=== PATIENT | male | born 1995 | race African-American/Black ===

== ENCOUNTER 2022-03-07 14:51 | Emergency (ER) | payer SELFPAY ==
--- NOTE | ~2022-03-07 | CT_ITS ---
EXAMINATION: CT abdomen pelvis w con DATE: 03/07/2022 20:01 INDICATION: llq tenderness, n/v/d TECHNIQUE: Computed tomography (CT) of the abdomen and pelvis was performed with 100 mL Omnipaque-350 intravenous contrast. Automated exposure control and iterative reconstruction technique were employe d. The dose-length product was 355.60 mGy-cm. COMPARISON: None. FINDINGS: Lower thorax: Unremarkable Liver: Normal. Biliary/Gallbladder: Gallbladder is collapsed. No bile duct dilation. Pancreas: No mass or duct dilation. Spleen: Normal. Adrenals:No mass. Kidneys: No mass, stone, or hydronephrosis. GI tract: Distal esophageal and gastric wall edema as can be seen with esophagitis/gastritis. No smal l or large bowel dilation. Appendix not confidently visualized Mesentery/Peritoneum: No ascites, mass, or free air. Retroperitoneum: No mass. Pelvis: Pelvic organs are within normal limits. Soft Tissues: Soft tissues and body wall unremarkable. Bones: No acute osseous finding. IMPRESSION: No acute abdominopelvic process detected Reviewed, dictated and finalized at location K. [employer]
[2022-03-07 15:32] VITALS: BP 121/44; PULSE 51; RESP 16; TEMP 37; O2SAT 100
[2022-03-07 16:03] LABS: Basophils Percent Auto 0.9 % (0.2-1.2); Eosinophils Absolute Auto 0.1 K/mm3 (0-0.3); Eosinophils Percent Auto 2.2 % (0-4.4); Hemoglobin 13.9 g/dL (14.0-18.0); Immature Granulocyte Absolute 0.03 K/mm3 (0.00-0.031); Immature Granulocyte Percent A 0.6 % (0-0.5); Lymphocytes Absolute Auto 1.78 K/mm3 (0.9-3.2); Lymphocytes Percent Auto 38.5 % (18.3-44.2); Mean Corpuscular HGB Conc 30.9 g/dl (32-36); Mean Corpuscular Hemoglobin 29.1 pg (26-34); Mean Corpuscular Volume 94.1 fl (80-100); Mean Platelet Volume 11.7 fl (7.4-10.4); Monocytes Absolute Auto 0.4 K/mm3 (0.1-0.6); Monocytes Percent Auto 8.4 % (2.6-8.5); Neutrophils Absolute Auto 2.3 K/mm3 (1.3-6.7); Neutrophils Percent Auto 49.4 % (45.5-73.1); Platelet Count Result 177 k/mm3 (150-375); Red Blood Count 4.78 M/mm3 (4.6-6.20); Red Cell Distribution Width 12.9 % (11.5-14.5); White Blood Count 4.6 K/mm3 (4.5-10.0)
[2022-03-07 16:15] LABS: Alanine Aminotransferase 57 U/L (6-50); Alkaline Phosphatase 54 U/L (38-126); Anion Gap 17 mmol/L (8-16); Aspartate Amino Transferase 69 U/L (17-59); Bilirubin,Total 0.6 mg/dL (0.2-1.3); Blood Urea Nitrogen 10 mg/dL (9-20); Calcium 9.3 mg/dL (8.4-10.2); Carbon Dioxide 24 mmol/L (22-30); Chloride 102 mmol/L (98-107); Estimated CRCL calculation 116 ml/min; Estimated Glomerular Filt Rate > 60; Glucose 85 mg/dL (65-110); Lipase 122 U/L (23-300); Potassium 4.1 mmol/L (3.4-5.0); Sodium 143 mmol/L (137-145)
[2022-03-07 17:21] LABS: Appearance Urine Clear (Clear); Bilirubin Urine Negative (Negative); Blood Urine Negative (Negative); Color Urine Yellow (Yellow); Glucose Urine UA Negative (Negative); Ketones Urine Negative (Negative); Leukocyte Esterase Ur Negative LEU/UL (Negative); Nitrate Urine Negative (Negative); Protein Urine Negative (Negative); Specific Grav Ur 1.025 (1.001-1.035); Urobilinogen Urine 0.2 mg/dL (<2.0); pH Urine 5.5 (5.0-9.0)
[2022-03-07 17:30] LABS: Add Urine Microscopic? NO
[2022-03-07 19:12] VITALS: BP 145/39; PULSE 55; RESP 18; TEMP 37.1; O2SAT 100
--- NOTE | 2022-03-07 19:37 | ED.ABDPAIN ---
HPI - Abdominal Pain General Chief Complaint: Abdominal Pain <ROMINA Rowley Last Filed: 03/07/22 22:01> Stated Complaint: ABD PAIN/DIARRHEA/BLACK STOOLS <ROMINA Rowley Last Filed: 03/07/22 22:01> Time Seen by Provider: 03/07/22 19:17 <ROMINA Rowley Last Filed: 03/07/22 22:01> History of Present Illness HPI narrative: Patient is a 26-year-old male here for evaluation of generalized abdominal pain for the past 3 days. Patient states the pain is intermittent in nature, worse after eating or drinking, present all over but worse in the left lower quadrant. Has attempted Pepto-Bismol without significant relief of his pain. He was sent from urgent care today for imaging due to tenderness in that area. Patient additionally notes nausea, vomiting and diarrhea over the past 3 days but has been able to tolerate p.o. Denies history of abdominal surgeries. No fevers, chills, leg swelling, chest pain or shortness of breath. <ROMINA Rowley Last Filed: 03/07/22 22:01> Related Data Allergies/Adverse Reactions: Allergies Allergy/AdvReac Type Severity Reaction Status Date / Time No Known Allergies Allergy Verified 03/07/22 15:31 <ROMINA Rowley Last Filed: 03/07/22 22:01> Review of Systems Review of Systems: Gen.: Denies fevers or chills Eyes: Denies eye pain or visual change ENT: Denies congestion Respiratory: Denies shortness of breath or cough CV: Denies chest pain or palpitations GI: Reports abdominal pain, nausea, vomiting denies burning, urgency, frequency or hematuria Musculoskeletal: Denies back pain or muscle pain Neuro: Denies numbness, tingling, weakness or focal weakness Skin: Denies rash Except as documented, all other systems reviewed and negative <ROMINA Rowley Last Filed: 03/07/22 22:01> Exam Narrative: APPEARANCE: Well appearing, no pain in distress, well-nourished. Head: Normocephalic and atraumatic. EYES: PERRLA/EOMI, conjunctivae clear NOSE: No nasal drainage EARS: External ear normal in appearance THROAT: Oropharynx is clear. Mucous membranes are moist. NECK: Supple. No adenopathy, no masses. RESPIRATORY: Airway patent, respirations nonlabored. Clear to auscultation bilaterally, no rales, rhonchi, wheezing. CARDIOVASCULAR: slow rate. Regular rhythm without murmurs, rubs, or gallops. ABDOMINAL: Tender to palpation in left lower quadrant. Normoactive bowel sounds. Soft, nondistended. No rebound tenderness or guarding. MUSCULOSKELETAL: Extremities are warm and well-perfused. Moves all extremities well. No edema. NEURO: Normal speech. No focal neurologic deficits. SKIN: Skin is warm and dry. No rashes. PSYCHIATRIC: Normal affect/mood. <Mary Ann East PA-C - Last Filed: 03/07/22 22:01> Course [employer]ATED [employer]TER/PA Physician Supervision For this encounter, I have reviewed the mid-level provider documentation, treatment plan and medical decision making. I have had [id number] time with the patient. 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 He has been having some abdominal pain with diarrhea. Abdominal exam is benign with no distension, soft, nontender no guarding or rebound. Patient was sent by the urgent care to get a CT. Patient's findings are consistent with gastroenteritis. Patient will be discharged home with supportive care. <Salbador Mccoy MD - Last Filed: 03/08/22 05:09> Vital Signs Vital signs: Vital Signs Temperature 98.6 F 03/07/22 15:32 Pulse Rate 51 L 03/07/22 15:32 Respiratory Rate 16 03/07/22 15:32 Blood Pressure 121/44 L 03/07/22 15:32 Pulse Oximetry 100 03/07/22 15:32 Temperature 98.8 F 03/07/22 19:12 Pulse Rate 55 L 03/07/22 19:12 Respiratory Rate 18 03/07/22 19:12 Blood Pressure 145/39 H 03/07/22 19:12 Pulse Oximetry 100 03/07/22 19:12 Oxygen Delivery Room Air 03/07/22 19:12 <Mary Ann East
[2022-03-07] MEDS: SODIUM CHLORIDE 0.9% IV 1,000 ML 999 ML IV CONT (20:11)
[2022-03-07] MEDS: PANTOPRAZOLE SODIUM IV 40 MG VIAL IV PUSH (20:11)
== END 2022-03-07 21:07 | disposition home or self-care (01) ==
LOC: ANHED 20:56
PROVIDERS: Emergency Medicine; Emergency Provider Emergency Medicine
DX: K52.9 Noninfective gastroenteritis and colitis, unspecified (principal)
CPT/HCPCS: 36415; 74177; 80053; 81003; 83690; 85025; 96361; 96374; 99284; C9113; J7030; Q9967

== ENCOUNTER 2022-12-21 20:56 | Emergency (ER) | payer OTHER, SELFPAY ==
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
[2022-12-21 21:00] VITALS: BP 131/61; PULSE 57; RESP 14; TEMP 36.4; O2SAT 100
[2022-12-21 23:01] VITALS: BP 129/66; PULSE 54; RESP 20; TEMP 36.6; O2SAT 98
[2022-12-21 23:03] VITALS: O2SAT 100
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
== END 2022-12-21 23:30 | disposition home or self-care (01) ==
PROVIDERS: Emergency Provider Preventive Medicine Aerospace Medicine
DX: T59.91XA Toxic effect of unspecified gases, fumes and vapors, accidental (unintentional), initial encounter (principal); R05.9 Cough, unspecified; R11.10 Vomiting, unspecified; F17.200 Nicotine dependence, unspecified, uncomplicated
CPT/HCPCS: 71046; 99283

== ENCOUNTER 2023-07-28 12:22 | Emergency (ER) | payer SELFPAY ==
[2023-07-28 12:32] VITALS: BP 139/97; PULSE 61; RESP 14; TEMP 36.7; O2SAT 100
--- NOTE | 2023-07-28 12:44 | ED.SKABFB ---
HPI - Skin/Abscess/Foreign Bdy General Chief complaint: Wound/Laceration Stated complaint: Right Hand Wound Check/Groin Pain Time Seen by Provider: 07/28/23 12:35 Source: patient and RN notes reviewed Mode of arrival: ambulatory Limitations: no limitations History of Present Illness HPI narrative: 27-year-old male presents with 2 complaints. He reports a callus spot on his right hand that is tender. He denies drainage from the area. He denies surrounding redness, warmth, rash. He also complains of intermittent mild left groin pain. He denies testicular redness, swelling, warmth, tenderness. Denies severe pain, denies rash. Denies bumps, lumps, masses. He denies dysuria, urgency, frequency. MD complaint: rash Related Data Allergies Allergy/AdvReac Type Severity Reaction Status Date / Time No Known Allergies Allergy Verified 07/28/23 12:25 Review of Systems Review of Systems: CONSTITUTIONAL: Denies malaise, chills, sweats, or fever. EYES: Denies redness, or discharge. ENT: Denies rhinorrhea, congestion, swollen lips, swollen tongue CARDIOVASCULAR: Denies chest pain, palpitations, or edema. RESPIRATORY: Denies cough or dyspnea. GASTROINTESTINAL: Denies abdominal pain, nausea, vomiting SKIN: Reports a hard callus on the palm of his right hand MUSCULOSKELETAL: Denies joint pain or myalgia. NEUROLOGIC: Denies headache. All systems reviewed & are unremarkable except as noted in HPI and below PMFSH Past Medical History Medical History No significant past medical history Surgical History Surgical History No significant past surgical history Social History Social History Smoking status: Current every day smoker Alcohol intake: current Substance use: current Substance use type: marijuana Comments At time of signature, agree with nursing past medical, surgical, social and family history. There is no relevant family history pertinent to the presenting complaint Exam Narrative: GENERAL: Well-appearing, well-nourished, and in no acute distress. HEAD: Normocephalic, atraumatic. EYES: PERRLA, conjunctivae clear, and EOMI. ENT: Mucous membranes moist. Oropharynx without edema, erythema or lesions. NECK: Supple. No lymphadenopathy CHEST: Clear to auscultation. No respiratory distress. HEART: Regular rate and rhythm. SKIN: Warm, dry. 0.5 cm callused area consistent with a common wart noted to the palmar aspect of the right hand : No hernia noted, no testicular tenderness, erythema, edema noted NEURO: Alert and oriented x3. PSYCH: Normal mood and affect Course Course Emergency Course: Patient is aware of diagnosis, understands and agrees to treatment plan. Anticipatory guidance given. Patient agrees to follow-up as directed and is aware of reasons to seek care at the emergency department. Portions of this record may have been created with voice recognition software Level of Care: Express Care Visit Vital Signs Vital signs: Vital Signs Temperature 98.1 F 07/28/23 12:32 Pulse Rate 61 07/28/23 12:32 Respiratory Rate 14 07/28/23 12:32 Blood Pressure 139/97 H 07/28/23 12:32 Pulse Oximetry 100 07/28/23 12:32 Oxygen Delivery Room Air 07/28/23 12:32 Temperature 98.1 F 07/28/23 12:32 Pulse Rate 61 07/28/23 12:32 Respiratory Rate 14 07/28/23 12:32 Blood Pressure 139/97 H 07/28/23 12:32 Pulse Oximetry 100 07/28/23 12:32 Oxygen Delivery Room Air 07/28/23 12:32 Reviewed. MDM - Skin/Abscess/Foreign Bdy MDM Narrative Medical decision making narrative: Exam findings show no acute concerns or changes; patient is non-toxic appearing and is in no distress. Patient is appropriate for outpatient treatment and follow-up. Critical Care Time Critical Care Time Critical Care Time: No Dischar
== END 2023-07-28 12:54 | disposition home or self-care (01) ==
PROVIDERS: Emergency Provider Nurse Practitioner
DX: B07.9 Viral wart, unspecified (principal); F17.200 Nicotine dependence, unspecified, uncomplicated; F12.90 Cannabis use, unspecified, uncomplicated
CPT/HCPCS: 99213; G0463